=== PATIENT | male | born 1975 | race Caucasian/White ===

== ENCOUNTER 2017-06-24 12:31 | Day surgery (SDC) | payer BC ==
[~2017-06-24 12:31] MED LIST: Buffered Lidocaine 0.9% SYRIN* 5 ML/SYR SYRINGE INTRADERM ONE; Dexamethasone IV* 4 MG/ML 1 ML (4 MG) IV SLOW PU ONE; Famotidine IV* 10 MG/ML 2 ML (20 mg) IV ONE
[2017-06-24] MEDS ORDERED: Famotidine IV* 10 MG/ML 2 ML (20 mg) ONE (12:42)
[2017-06-24] MEDS ORDERED: Dexamethasone IV* 4 MG/ML 1 ML (4 MG) ONE (12:42)
[2017-06-24] MEDS ORDERED: ceFAZolin 2 GM PREMIX (*) 2 GM/50 ML BAG IVPB ONE (12:51)
[2017-06-24] MEDS ORDERED: Bupivacaine 0.25% SDV* 30 ML ONE ×2 (15:15→18:18)
[2017-06-24] MEDS ORDERED: Lidocaine 2% PF * 5 ML VIAL ONE (16:22)
[2017-06-24] MEDS ORDERED: Midazolam* 1 MG/ML 5 ML VIAL (5 MG) ONE (16:22)
[2017-06-24] MEDS ORDERED: Propofol* 10 MG/ML 20 ML BTL IV PUSH ONE (16:22)
[2017-06-24] MEDS ORDERED: fentaNYL* 50 MCG/ML 2 ML VIAL (100 MCG VIAL) ONE ×3 (16:22→17:41)
[2017-06-24] MEDS ORDERED: Ketorolac INJ* 30 MG/ML 1 ML VIAL IV PRN (16:59)
[2017-06-24] MEDS ORDERED: fentaNYL* 50 MCG/ML 2 ML VIAL (100 MCG VIAL) IV PRN (16:59)
[2017-06-24] MEDS ORDERED: oxyCODONE/Acetamin 5/325 MG* TAB PO PRN (16:59)
[2017-06-24] MEDS ORDERED: PROCHLORPERAZINE INJ 5 MG/ML 2 ML VIAL IV PRN (16:59)
[2017-06-24] MEDS ORDERED: Naloxone* 0.4 MG/ML 1 ML VIAL IV PRN (16:59)
[2017-06-24] MEDS ORDERED: Ondansetron INJ* 2 MG/ML VIAL ONE (17:30)
[2017-06-24 19:25] VITALS: BP 140/99
--- NOTE | 2017-06-25 13:31 | OP ---
DATE OF OPERATION: 06/24/17 - [facility] DATE OF : 73 SURGEON: Maikel Martinez MD MIRROR SPECIALIST: TAINA Padilla ANESTHESIOLOGIST: Dr. Cheng. ANESTHESIA: General. PRE-OP DIAGNOSES: 1. Right cubital tunnel syndrome, clinically and electrodiagnostically. 2. Recurrent right carpal tunnel syndrome despite prior right carpal tunnel release. 3. Right ulnar nerve compression at the wrist. 4. Right ring finger dorsal proximal interphalangeal joint mass. POST-OP DIAGNOSES: 1. Right cubital tunnel syndrome, clinically and electrodiagnostically. 2. Recurrent right carpal tunnel syndrome despite prior right carpal tunnel release. 3. Right ulnar nerve compression at the wrist. 4. Right ring finger dorsal proximal interphalangeal joint mass. OPERATIVE PROCEDURE: 1. Right ulnar nerve decompression at the elbow with anterior transposition. 2. Right revision carpal tunnel release. 3. Right ulnar nerve decompression at the wrist. 4. Excision of right ring finger dorsal PIP joint mass. 5. Right wrist hypothenar fat pad transfer for coverage of the median nerve. ESTIMATED BLOOD LOSS: 2 mL. COMPLICATIONS: None. FINDINGS: As expected. DESCRIPTION OF PROCEDURE: Moses was seen in the preoperative holding area. The correct site, side, and procedure were identified. We came back to the operating room and the arm was prepped and draped in the usual fashion. A time- out was performed. The arm was exsanguinated with the Esmarch and the tourniquet was inflated to 250 mmHg. I began by making a curvilinear incision over the dorsal and just proximal to the right ring finger PIP joint. Full-thickness flaps were raised right off the mass and the paratenon dorsally. The mass was excised in marginal type fashion, was sitting just on top of the paratenon. It tracked volarly. It was followed all the way down. It did not have exactly the typical consistency of a ganglion cyst and appeared to be a bit more solid in nature. At any rate, we excised it in its entirety, it was handed off as a specimen. The wound was irrigated out and the skin was closed with 4-0 nylon suture. Next, I made a longitudinal incision utilizing his prior carpal tunnel release incision. This was brought back across the ulnar wrist joint in Martha type fashion. Full-thickness flaps were raised off of the fascia and transverse carpal ligament. I began proximally and unroofed the median nerve. This was then tracked distally through the carpal tunnel and the transverse carpal ligament was rereleased again all the way through out its entirety distally until the median nerve was seen to branch into its various common digital nerves. The nerve was very adherent to the undersurface of the transverse carpal ligament and stuck in quite a bit of scar tissue. Once the complete neurolysis has been performed, I turned my attention to the ulnar nerve. I came proximally and unroofed the ulnar neurovascular bundle. Dissection was carried down and the roof of Guyon's canal was released. The hypothenar fascia was released over the motor branch. The deep subfascial layer was released to complete the decompression of the motor branch. There were some perforators coming off the ulnar artery that were cauterized with a bipolar cautery. Once the release of the wrist was completed proximally and distally, we irrigated out the wound. The median nerve sitting very superficial. I therefore decided to cover the median nerve with a hypothenar fat pad transfer. I went ahead and used the 15 blade to raise ulnarly based flap of the hypothenar fat pad. This was then rotated and transposed into place covering the median nerve. A 4-0 Vicryl suture was used to suture the hypothenar fat pad to the radial flap of the transverse carpal ligament covering the median nerve over good 2.5 to 3 cm segment. Once the hypothenar fat pad transfer was complete, I thought that was much nicer. We then irrigated out the wound. Skin was closed with 4-0 nylon suture. I then turned my attention to the elbow. A curvilinear incision was made centered over Álvarez's ligament. The dissection was carried down, the medial antebrachial cutaneous nerve was encountered and was protected throughout the entirety of the case. I began the decompression and released the nerve proximally and then released the Álvarez's ligament and then released distally. Proximally, the nerve was released up through the arcade of [place] distally. The nerve was released all the way through the subfascial layer of the 2 edges of the FCU. Once the nerve was released, I flexed and extended the elbow. The nerve did perch itself up under the medial epicondyle. I, therefore , decided to transpose the nerve. A vessel loop was placed and a more formal neurolysis was performed. The leading edge of the FCU fascia was released. The medial intramuscular septum was released. Z-type fascial flaps were raised off the flexor pronator fascia. The muscular septa were excised. The nerve was then transposed up and the 2 edges of the flaps were brought over the nerve and sewed to each other in an end-to-end fashion with 4-0 Ethibond suture securing the nerve in the transposed position. There was absolutely no compression on the nerve. There was no kinking of the nerve. I irrigated out the wounds. Bovie cautery was used to obtain hemostasis. Subcutaneous tissue was reapproximated with 3-0 Vicryl. Skin was closed with 4-0 nylon suture. Wounds were infiltrated with 0.25% plain Marcaine. The wounds were dressed with Xeroform, 4 x 4, sterile Webril, and a long-arm splint with a lateral buttress was applied. To dress the wound for the ring finger, I used some Xeroform, some 1-inch Hernan, and a Coban dressing. Tourniquet was deflated. The hand finger pinked up immediately. The patient was woken up and taken to the recovery room in stable condition. [id number]/[facility] #: [id number] CAITLYN
== END 2017-06-24 19:32 | disposition home or self-care (01) ==
LOC: OREAST 12:31
PROVIDERS: ATTEND Orthopaedic Surgery Hand Surgery
DX: M67.441 Ganglion, right hand (principal); G56.21 Lesion of ulnar nerve, right upper limb; G56.01 Carpal tunnel syndrome, right upper limb; Z72.0 Tobacco use; F41.9 Anxiety disorder, unspecified
CPT/HCPCS: 88305; J0690; J1100; J2250; J2405; J2704; J3010

== ENCOUNTER 2018-08-05 16:37 | Emergency (ER) | payer BC, MEDICAID ==
[2018-08-05 16:59] VITALS: BP 140/94
--- NOTE | 2018-08-05 17:13 | UC ---
Hand/Wrist HPI - HPI Summary HPI Summary: 43 yo male caught RMF caught in [employer] 2 days ago nail partially avulsed pain is severe/throbbing about 20 yrs ago same finger was crushed in 20 ton press He is right handed Has appt with orthopedist in 5 days - History Of Current Complaint Chief Complaint: UCUpperExtremity Stated Complaint: MIDDLE FINGER INJ Time Seen by Provider: 08/05/18 17:05 Hx Obtained From: Patient Onset/Duration: Sudden Onset Severity Initially: Severe Severity Currently: Severe Pain Intensity: 10 Pain Scale Used: 0-10 Numeric Character Of Pain: Throbbing Aggravating Factor(s): Other - ouch Alleviating Factor(s): Nothing Associated Signs And Symptoms: Positive: Swelling, Bruising Related History: Similar Episode/Dx As - crushing injury, Dominant Hand Right Hands: 1 - swollen/ecchymotic/nail bed lac extending to tip is sealed and does not appear infected - Allergies/Home Medications Allergies/Adverse Reactions: Allergies Allergy/AdvReac Type Severity Reaction Status Date / Time No Known Allergies Allergy Verified 08/05/18 16:58 Home Medications: Home Medications Ibuprofen TAB* [Motrin TAB* 800 MG] 800 mg PO ONCE 08/05/18 [History Confirmed 08/05/18] PMH/Surg Hx/FS Hx/Imm Hx Previously Healthy: Yes - Surgical History Surgical History: Yes Surgery Procedure, Year, and Place: right hand surgery - 20 yrs ago [place]. inguinal hernia - 2011 - pt reports in MD office (?) in [place], [place] - denies having it done in a hospital. right elbow/tendon damage - Family History Known Family History: Positive: Hypertension - Social History Alcohol Use: Daily Alcohol Amount: 4-6 beers daily Substance Use Type: None Smoking Status (MU): Heavy Every Day Tobacco Smoker Type: Cigarettes Amount Used/How Often: 1 ppd Length of Time of Smoking/Using Tobacco: 20 years Household Exposure Type: Cigarettes - Immunization History Most Recent Tetanus Shot: 2018 per patient Review of Systems All Other Systems Reviewed And Are Negative: Yes Constitutional: Positive: Negative Skin: Positive: Bruising Eyes: Positive: Negative ENT: Positive: Negative Respiratory: Positive: Negative Cardiovascular: Positive: Negative, Palpitations Gastrointestinal: Positive: Negative Genitourinary: Positive: Negative Motor: Positive: Negative Neurovascular: Positive: Decreased Sensation - chronic intermittent bilat hand numbenss Musculoskeletal: Positive: Arthralgia Neurological: Positive: Negative Psychological: Positive: Negative Physical Exam Triage Information Reviewed: Yes Appearance: Well-Appearing, No Pain Distress, Well-Nourished Vital Signs: Initial Vital Signs Temp 98.4 F 08/05/18 16:55 Pulse 85 08/05/18 16:55 Resp 16 08/05/18 16:55 BP 140/94 08/05/18 16:55 Pulse Ox 100 08/05/18 16:55 Vital Signs Reviewed: Yes Eyes: Positive: Conjunctiva Clear ENT: Positive: Hearing grossly normal. Negative: Nasal congestion, Nasal drainage, Trismus, Muffled voice, Hoarse voice Neck: Positive: Supple, Nontender, No Lymphadenopathy Respiratory: Positive: Lungs clear, Normal breath sounds, No respiratory distress Cardiovascular: Positive: RRR, No Murmur Musculoskeletal: Positive: Other: - see image Neurological: Positive: Alert Psychological Exam: Normal Skin Exam: Normal Diagnostics - Radiology No standard instances Radiology Interpretation Completed By: Radiologist Summary of Radiographic Findings: Chronic deformity of the third digit however there appears to be new acute. fractures at the base of the proximal end of the distal phalanx in the ulnar aspect as. well as a nondisplaced fracture of the distal tuft. Hand/Wrist Course/Dx - Differential Dx/Diagnosis Provider Diagnosis: Fracture of distal phalanx of right middle finger Discharge - Sign-Out/Discharge Documenting (check all that apply): Patient Departure All imaging exams completed and their final reports reviewed: Yes - Discharge Plan Condition: Stable Disposition: HOME Prescriptions: Cephalexin CAP* [Keflex CAP*] 500 mg PO QID #28 cap HYDROcodone/ACETAMIN 5-325 MG* [Verbank 5-325 TAB*] 1 tab PO Q4H PRN #16 tab MDD 4 PRN Reason: Pain Patient Education Materials: Finger Fracture (ED) Referrals: Maikel Martinze MD [Medical Doctor] - 4 Days Additional Instructions: continue ibuprofen elevate elevate elevate RECHECK HERE OR ER FOR CONCERNS OF INFECTION splint - Billing Disposition and Condition Condition: STABLE Disposition: Home
== END 2018-08-05 17:53 | disposition home or self-care (01) ==
LOC: UCCORT 16:37
DX: S62.632A Displaced fracture of distal phalanx of right middle finger, initial encounter for closed fracture (principal); W31.89XA Contact with other specified machinery, initial encounter; F17.210 Nicotine dependence, cigarettes, uncomplicated
CPT/HCPCS: 26750; 73140; 99212; G0463

== ENCOUNTER → 2018-08-29 13:43 | Day surgery (SDC) | payer MEDICAID ==
[~2018-08-29 13:43] MED LIST changes: -Buffered Lidocaine 0.9% SYRIN* 5 ML/SYR SYRINGE INTRADERM ONE; +Buffered Lidocaine 1% SYRIN* 1 ML/SYRINGE INTRADERM ONE; +Bupivacaine 0.25% SDV PF* 10 ML VIAL INJ ONE; -Dexamethasone IV* 4 MG/ML 1 ML (4 MG) IV SLOW PU ONE; +Dexamethasone IV* 4 MG/ML 1 ML (4 MG) ONE; +DiMENhydriNATE IV* 50 MG/ML VIAL IV PUSH PRN; +Famotidine IV* 10 MG/ML 2 ML (20 mg) ONE; +HYDROcodone/ACETAMIN 5-325 MG* 1 TAB PO PRN; +HYDROmorphone INJ1* 1 MG/ML SYRINGE IV PRN; +Ketorolac INJ* 30 MG/ML 1 ML VIAL ONE; +Lactated Ringers 1000 ML Bag* 1,000 ML IV SCH; +Lidocaine 2% PF * 5 ML VIAL ONE; +Midazolam* 1 MG/ML 5 ML VIAL (5 MG) ONE; +Naloxone* 0.4 MG/ML 1 ML VIAL IV PRN; +Ondansetron INJ* 2 MG/ML VIAL ONE; +Propofol* 10 MG/ML 20 ML BTL ONE; +ceFAZolin 2 GM PREMIX in ORs 2 GM/50 ML BAG ONE; +fentaNYL* 50 MCG/ML 2 ML VIAL (100 MCG VIAL) ONE
[2018-08-29 17:09] VITALS: BP 123/89
--- NOTE | 2018-08-29 20:50 | OP ---
DATE OF OPERATION: 08/29/18 [facility] DATE OF : 73 SURGEON: Maikel Martinez MD SPECIAL PROCEDURE TECH: TAINA Noble. An assistant branch operations manager was needed for the procedure to aid in positioning of the arm and retraction. ANESTHESIOLOGIST: Dr. Peters. ANESTHESIA: General. PRE-OP DIAGNOSES: 1. Left carpal tunnel syndrome. 2. Left cubital tunnel syndrome. POST-OP DIAGNOSES: 1. Left carpal tunnel syndrome. 2. Left cubital tunnel syndrome. OPERATIVE PROCEDURE: 1. Left in situ cubital tunnel release. 2. Left carpal tunnel release. INDICATIONS: Moses has the aforementioned conditions. He has done well with decompressions on the right. We had talked about risks and benefits. He wanted to proceed with surgical decompression on the left. ESTIMATED BLOOD LOSS: 5 mL. COMPLICATIONS: None. FINDINGS: See above and below. DESCRIPTION OF PROCEDURE: Moses was seen in the preoperative holding area. The correct site, side, and procedure were identified. We came back to the operating room where the arm was prepped and draped in the usual fashion and a time-out was performed. The arm was exsanguinated with the Esmarch and the tourniquet was inflated to 250 mmHg. I began by making a longitudinal incision of 2 to 3 cm at the proximal palm. Dissection was carried down through the subcutaneous tissue and palmar fascia. Self-retaining retractor was placed. The transverse carpal ligament was released just off the radial aspect of the hook of the hamate. The release was carried out from distal to proximal. Once I had completed the release distally, I placed a Bright retractor proximally and released the remainder of the transverse carpal ligament and distal antebrachial fascia. Once I had confirmed that the nerve was completely released proximally and distally, we irrigated out the wound and the skin was closed with 4-0 nylon suture. Next, I abducted and externally rotated the arm. A curvilinear incision was made centered over the cubital tunnel. Dissection was carried down and care was taken to preserve the medial antebrachial cutaneous nerve. I then released Álvarez's ligament and then I came proximally and released the fascia overlying the medial nerve all the way up past the arcade of [place]. An appendiceal retractor was placed to aid in visualization. Then, I came distally and released the superficial FCU fascia. The 2 heads of the FCU were then split. The subfascial layer was then split. I then checked the decompression. There was no subluxation of the nerve with full flexion and extension of the elbow and everything was looking good, so we irrigated out the wound. Subcutaneous tissue was reapproximated with 3-0 Vicryl. Skin was closed with 3-0 Monocryl suture and Steri-Strips. 0.25% Marcaine was infiltrated all about the operative area. Wounds were dressed with soft dressings and he was taken to the recovery room in stable condition. [id number]/[facility] #: [id number] CAITLYN
== END | disposition home or self-care (01) ==
LOC: OR 13:43
PROVIDERS: ATTEND Orthopaedic Surgery Hand Surgery
DX: G56.02 Carpal tunnel syndrome, left upper limb (principal); G56.22 Lesion of ulnar nerve, left upper limb; F17.210 Nicotine dependence, cigarettes, uncomplicated
CPT/HCPCS: J0690; J1100; J1885; J2250; J2405; J2704; J3010; J3490

== ENCOUNTER 2019-04-06 06:19 | Day surgery (SDC) | payer OTHER ==
[~2019-04-06 06:19] MED LIST changes: -Bupivacaine 0.25% SDV PF* 10 ML VIAL INJ ONE; -Dexamethasone IV* 4 MG/ML 1 ML (4 MG) ONE; -DiMENhydriNATE IV* 50 MG/ML VIAL IV PUSH PRN; -HYDROcodone/ACETAMIN 5-325 MG* 1 TAB PO PRN; -HYDROmorphone INJ1* 1 MG/ML SYRINGE IV PRN; -Ketorolac INJ* 30 MG/ML 1 ML VIAL ONE; -Lidocaine 2% PF * 5 ML VIAL ONE; -Midazolam* 1 MG/ML 5 ML VIAL (5 MG) ONE; -Naloxone* 0.4 MG/ML 1 ML VIAL IV PRN; -Ondansetron INJ* 2 MG/ML VIAL ONE; -Propofol* 10 MG/ML 20 ML BTL ONE; -ceFAZolin 2 GM PREMIX in ORs 2 GM/50 ML BAG ONE; -fentaNYL* 50 MCG/ML 2 ML VIAL (100 MCG VIAL) ONE
[2019-04-06] MEDS ORDERED: ROPIVACAINE 5 MG/ML 30 ML BTL (0.5%) ONE (06:57)
[2019-04-06] MEDS ORDERED: Midazolam* 1 MG/ML 5 ML VIAL (5 MG) ONE (07:27)
[2019-04-06] MEDS ORDERED: oxyCODONE TAB* 5 MG TAB PO PRN (07:35)
[2019-04-06] MEDS ORDERED: DiMENhydriNATE IV* 50 MG/ML VIAL IV PUSH PRN (07:35)
[2019-04-06] MEDS ORDERED: Naloxone* 0.4 MG/ML 1 ML VIAL IV PRN (07:35)
[2019-04-06] MEDS ORDERED: Acetaminophen TAB* 325 MG PO PRN (07:35)
[2019-04-06] MEDS ORDERED: fentaNYL* 50 MCG/ML 2 ML VIAL (100 MCG VIAL) ONE (07:46)
[2019-04-06] MEDS ORDERED: Ketorolac INJ* 30 MG/ML 1 ML VIAL ONE (07:52)
[2019-04-06] MEDS ORDERED: Ondansetron INJ* 2 MG/ML VIAL ONE (07:52)
[2019-04-06] MEDS ORDERED: Dexamethasone IV* 4 MG/ML 1 ML (4 MG) ONE (07:52)
[2019-04-06] MEDS ORDERED: Propofol* 10 MG/ML 20 ML BTL ONE (07:52)
[2019-04-06] MEDS ORDERED: Lidocaine 2% PF * 5 ML VIAL ONE (07:53)
[2019-04-06 09:01] VITALS: BP 120/90
--- NOTE | 2019-04-06 22:34 | OP ---
DATE OF OPERATION: 04/06/19 - [facility] DATE OF : 73 SURGEON: Maikel Martinez MD FRANCHISE SPECIALIST: TAINA Padilla ANESTHESIOLOGIST: Dr. Peters. ANESTHESIA: General. PRE-OP DIAGNOSES: 1. Right index trigger finger. 2. Right middle trigger finger. 3. Right ring trigger finger. POST-OP DIAGNOSES: 1. Right index trigger finger. 2. Right middle trigger finger. 3. Right ring trigger finger. 4. Right middle finger large A1 jenna inflammatory nodule. OPERATIVE PROCEDURE: 1. Right index trigger finger release. 2. Right middle trigger finger release. 3. Right ring trigger finger release. 4. Right middle finger A1 jenna large tendon sheath nodule excision. INDICATIONS: Mr. Bernard has the aforementioned conditions that are very severe. Talked about treatment options, risks and benefits and he wanted to proceed. ESTIMATED BLOOD LOSS: 2 mL. COMPLICATIONS: None. FINDINGS: See above and below. DESCRIPTION OF PROCEDURE: Mr. Bernard was seen in the preoperative holding area. The correct side, site, and procedures were identified. We came back to the operating room. The arm was prepped and draped in the usual fashion and a time- out was performed. The arm was exsanguinated with the Esmarch and the tourniquet was inflated to 225 mmHg. I made 1 cm incisions over the right index finger, right middle finger, and right ring finger A1 jenna. I then released sequentially the soft tissue to raise full thickness flaps off the tendon sheath starting on the index finger, then the middle finger, then the right finger. I then placed Ragnell retractors in the index finger and visualized the tendon sheath. The A1 jenna was very thickened, this was incised longitudinally. The fascia proximally was released. The A2 jenna was preserved. The tenosynovitis was excised. I then came to the middle finger, this was the worst of all the fingers. I noted quite a large inflammatory nodular tenosynovitis growing off the palmar aspect of the A1 jenna. I went ahead and excised that and handed off as a specimen. I then went ahead and released the A1 jenna longitudinally. There is a lot of tenosynovitis that was all excised. The A2 jenna was preserved. I then lastly came to the ring finger. I performed a similar trigger finger release, releasing the A1 jenna. The fascia proximally was released. At this point, all 3 fingers were released and were looking good. There is no triggering noted when I would passively flex and extend the fingers. The wounds were irrigated out. The skin was closed with 4-0 nylon suture. Soft dressings were applied, and he was taken to the recovery room in stable condition. [id number]/[facility] #: [id number] MTDD
== END 2019-04-06 09:29 | disposition home or self-care (01) ==
LOC: OREAST 06:19
PROVIDERS: ATTEND Orthopaedic Surgery Hand Surgery
DX: M65.321 Trigger finger, right index finger (principal); M65.331 Trigger finger, right middle finger; M65.341 Trigger finger, right ring finger; M65.841 Other synovitis and tenosynovitis, right hand; F17.210 Nicotine dependence, cigarettes, uncomplicated; E11.9 Type 2 diabetes mellitus without complications; I73.00 Raynaud's syndrome without gangrene; G89.29 Other chronic pain
CPT/HCPCS: 88305; J1100; J1885; J2250; J2405; J2704; J2795; J3010